=== PATIENT | female | born 1985 | race Caucasian/White ===

== ENCOUNTER 2025-08-07 16:12 | Emergency (ER) | payer OTHER, SELFPAY ==
[2025-08-07] VITALS (9 sets, daily range): BP systolic 109–133; BP diastolic 64–82; PULSE 65–83; RESP 18; TEMP 37; O2SAT 99–100; BMI 17.8
--- NOTE | 2025-08-07 17:23 | ED.HA ---
HPI - Headache General Chief Complaint: Headache Stated Complaint: headache, nausea x 2 days vison change Time Seen by Provider: 08/07/25 17:23 Source: patient, RN notes reviewed and old records reviewed Mode of arrival: Ambulatory Limitations: no limitations History of Present Illness HPI Narrative: 40-year-old female history of migraines presents with complaint of headache the left temporal region. Patient notes little bit of blurred vision of the left eye as well. She states no fevers. States she has had migraines in the past they are sometimes over the area of the temporal but this has been much stronger and more persistent. She states she is not sure if the eyeball itself really hurts but the pain does radiate around the orbit region. She has not noticed any redness or swelling. She states vision is slightly blurred but states she can see normally otherwise. She notes she had what felt like a typical migraine Friday night that had mostly improved and then overnight had a significant bump or increase of pain that has been persistent. She notes movement seems to make it worse. She denies any fevers or chills. No cough cold or congestion symptoms. She has had some nausea but no vomiting. She denies any other GI or urinary symptoms. No numbness tingling or weakness no difficulty with gait or movement. States no daily medications. Denies any major surgeries. No known drug allergies. No tobacco, occasional alcohol, no recreational drugs. Patient does wear glasses states she is nearsighted. No contacts. Related Data Allergies Allergy/AdvReac Type Severity Reaction Status Date / Time No Known Drug Allergies Allergy Verified 08/07/25 16:26 Review of Systems Review of Systems ROS Unobtainable: All systems reviewed & are unremarkable except as noted in HPI and below Patient History Social History Smoking Status: Never smoker Smoking Status: Never smoker Exam Narrative Exam Narrative: GEN: well nourished, well appearing female, alert and oriented x 3, patient appears to be in mild distress. HEENT: Atraumatic, pupils are equal round reactive to light, extraocular movements are intact, no photophobia, no warmth, erythema or other skin changes, no nystagmus nares are clear, TMs are clear with no fluid, there is no conjunctival pallor. Throat is clear without any exudates, erythema, tonsillar enlargement or uvular deviation, no meningeal signs. Visual acuity: right [20/20], left [20/20] without correction. IOP: Right 22 mm Hg, Left 19 mm Hg General: no globe trauma Eyelids: normal inspection, eyelids everted for exam on left. Conjunctiva/Sclera: normal inspection Corneas: normal inspection, examined with fluroscein on left with no uptake. EOM: intact, no palsy/entrapment Pupils: PERRL, normal accomadation, pupil normal Anterior Chambers: normal inspection, no hypema Posterior: normal fundoscopic on bilaterally HEART: Regular rate and rhythm without murmur, clicks, rubs. LUNGS:Lungs clear to auscultation, no wheezes, rales, crackles, chest moves symmetrically ABD:bowel sounds normal, soft, non-tender, no guarding, rebound, rigidity, no masses noted, no hepatosplenomegaly MSCL: Non-tender, no muscle atrophy, muscles strength 5/5 upper and lower extremities, full range of motion, normal gait NEURO:CN 2-12 intact, sensation normal Initial Vital Signs Initial Vital Signs: Vital Signs Pulse Rate 78 08/07/25 16:20 Pulse Oximetry 100 08/07/25 16:20 Course Orders Ordered: Discontinued Medications Fluorescein Sodium (Fluorescein 1 Mg Strip) 1 mg EYE-BOTH NOW ONE Stop: 08/07/25 17:32 Last Admin: 08/07/25 17:40 Dose: 1 mg Documented By: Ketorolac Tromethamine (Ketorolac 30 Mg/Ml Vial) 15 mg IV NOW ONE Stop: 08/07/25 17:49 Last Admin: 08/07/25 18:00 Dose: 15 mg Documented By: Proparacaine HCl (Proparacaine 0.5% Ophth Yvonne) 1 drops EYE-BOTH NOW ONE Stop: 08/07/25 17:32 Last Admin: 08/07/25 17:41 Dose: 1 drop Documented By: Vital Signs Vital signs: Vital Signs - 8 hr 08/07/25 16:20 08/07/25 16:24 08/07/25 16:24 Temperature Pulse Rate 78 78 Respiratory Rate Blood Pressure 116/64 Pulse Oximetry 100 100 Oxygen Delivery Method 08/07/25 16:25 08/07/25 16:30 08/07/25 16:30 Temperature 98.6 F Pulse Rate 80 73 Respiratory Rate 18 Blood Pressure 116/64 109/69 Pulse Oximetry 100 100 Oxygen Delivery Method Room Air 08/07/25 17:00 08/07/25 17:00 08/07/25 17:30 Temperature Pulse Rate 74 Respiratory Rate Blood Pressure 113/79 133/79 Pulse Oximetry 100 Oxygen Delivery Method 08/07/25 17:30 Temperature Pulse Rate 83 Respiratory Rate Blood Pressure Pulse Oximetry 100 Oxygen Delivery Method MDM - Headache Lab Data 08/07/25 16:50 08/07/25 16:50 Labs: Lab Results 08/07/25 Range/Units 16:50 WBC 4.4 L (4.5-11.0) X10^3/uL RBC 5.29 H (4.0-5.2) X10^6/uL Hgb 14.6 (12.0-16.0) g/dL Hct 43.1 (36-46) % MCV 81.5 (80-100) fL MCH 27.6 (26-34) PG MCHC 33.9 (30-36) % RDW 13.8 (11.6-14.8) % Plt Count 251 (150-400) X10^3/uL Neut % (Auto) 62.6 (50-75) % Lymph % (Auto) 28.0 (25-40) % Lyman % (Auto) 7.3 (3-14) % Eos % (Auto) 1.5 L (2-4) % Baso % (Auto) 0.6 (0-2) % Neut # (Auto) 2800 (0227-4943) /uL Lymph # (Auto) 1200 (6296-0007) /uL Lyman # (Auto) 300 (0-900) /uL Eos # (Auto) 100 (0-450) /uL Baso # (Auto) 0 (0-100) /uL ESR 1 (0-20) MM/HR Sodium 138 (137-145) mmol/L Potassium 4.2 (3.4-5.1) mmol/L Chloride 104 (98-107) mmol/L Carbon Dioxide 24 (22-32) mmol/L BUN 12 (7-17) mg/dL Creatinine 0.74 (0.52-1.04) mg/dL Estimated GFR > 60 (>60) mL/min BUN/Creatinine Ratio 16.2 (6-22) Glucose 100 H (70-99) mg/dL Calcium 9.6 (8.4-10.2) mg/dL Total Bilirubin 0.3 (0.2-1.3) mg/dL AST 25 (14-36) IU/L ALT 20 (<35) IU/L Alkaline Phosphatase 61 (38-126) U/L C-Reactive Protein < 0.5 (<1.0) mg/dL Total Protein 8.0 (6.3-8.2) g/dL Albumin 4.9 (3.5-5.0) g/dL Globulin 3.1 (1.7-4.1) g/dL Albumin/Globulin Ratio 1.6 (1.0-2.8) MDM Narrative Medical decision making narrative: Labs show white count of 4.4 hemoglobin of 14.6 platelets are 251, chemistries are overall appropriate, BUN and creatinine are normal LFTs are negative, ESR and CRP are both negative. CT head and neck angio shows no significant intracranial arterial abnormality of the head, arteries of the neck no findings of dissection. Non-con head CT shows no acute intracranial hemorrhage or mass effect. Patient had Toradol. 40-year-old female with a history of migraines but notes this is different and feels stronger than typical although the location somewhat similar but radiates more towards her eye little bit more atypical. Eye exam does not show any major changes eye pressures are 19 in the affected side in 22 on the unaffected side but otherwise her exam is normal. She does note a little bit of photophobia with this after lights are turned down for her exam. Her labs, imaging showed no acute change my suspicion for subarachnoid hemorrhage is low, patient is low risk for temporal arteritis but ESR and CRP are both negative making this unlikely as well. Patient feels much improved after Toradol. She is nontoxic, well-appearing felt appropriate for discharge home discussed differential need for follow up, repeat evaluation of the eye or she develops any new skin changes such as blisters or shingles or if she is having any other new concerning changes. Discharge Plan Departure Patient Disposition: Home Clinical Impression: Headache Instructions: DI for Headache Activity Restrictions/Additional Instructions: Follow up for recheck if your symptoms are persistent. Watch for any skin changes or rashes particularly small blisters on your forehead or new your eye if these develop you need re-evaluation. Please return if you develop fevers, sudden vision changes, any new weakness numbness or difficulty with speech, rapidly worsening headaches, persistent vomiting, lightheadedness or passing out or other new or concerning changes. Stand Alone Forms: Patient Portal/API
[2025-08-07] MEDS: FLUORESCEIN 1 MG STRIP EYE-BOTH (17:40)
[2025-08-07] MEDS: PROPARACAINE 0.5% OPHTH SOL 1 DROPS EYE-BOTH (17:41)
--- NOTE | 2025-08-07 17:47 | DI.CT.S_ITS ---
PROCEDURE: CT HEAD/BRAIN WO CON INDICATIONS: left temporal ott, hx migraines worst, pain radiates to eye TECHNIQUE: Noncontrast 4.5 mm thick angled axial sections acquired from the foramen magnum to the vertex, with coronal and sagittal reformats. For radiation dose reduction, the following was used: automated exposure control, adjustment of mA and/or kV according to patient size. COMPARISON: [facility], CT, CT ANGIO HEAD AND NECK, 08/07/2025, 17:56. FINDINGS: Image quality: Diagnostic. CSF spaces: Basal cisterns are patent. No extra-axial fluid collections. Ventricles are normal in size and shape. Brain: No midline shift. No intracranial mass effect or hemorrhage. Pillai- white matter interface is normal. Skull and face: Calvarium and visualized facial bones are intact, without suspicious lesions. Sinuses: Visualized sinuses and mastoids are clear. IMPRESSION: No imaging explanation is found for this patient's presenting symptoms. To the limits of this noncontrast study, no findings of intracranial masses or mass effect can be seen. No acute intracranial hemorrhage is seen. Dictated by: Oliverio Mora M.D. on 08/07/2025 at 17:33 Approved by: Oliverio Mora M.D. on 08/07/2025 at 17:33
--- NOTE | 2025-08-07 17:47 | DI.CT.S_ITS ---
PROCEDURE: CT ANGIO HEAD AND NECK INDICATIONS: left temporal ott, hx migraines worst, pain radiates to eye TECHNIQUE: After the administration of intravenous contrast, 1 mm thick sections acquired from the aortic arch through the [place] of [place]. 3-dimensional fkvxlpo-rwhyoekhb-keyqqlkorr (MIP) and/or volume rendering reformats were acquired of the central intracranial vasculature and neck separately. For radiation dose reduction, the following was used: automated exposure control, adjustment of mA and/or kV according to patient size. COMPARISON: [facility], CT, CT HEAD/BRAIN WO [facility], 08/07/2025, 17:56. FINDINGS: Image quality: Limited by bolus timing, with venous contamination. There is streak artifact seen through the level of the shoulders. Cerebral CT Angiogram: Internal carotid arteries: No acute findings. Intracranial ICA are patent with no significant stenosis. No occlusion. No aneurysm. Anterior cerebral arteries: Unremarkable. No significant stenosis. No occlusion. No aneurysm. Middle cerebral arteries: Unremarkable. No significant stenosis. No occlusion. No aneurysm. Posterior cerebral arteries: Unremarkable. No significant stenosis. No occlusion. No aneurysm. Basilar artery: Unremarkable. No significant stenosis. No occlusion. No aneurysm. Vertebral arteries: Unremarkable as visualized. Dural venous sinuses: Unremarkable given phase of enhancement. Other: Arterial phase appearance of the brain parenchyma is unremarkable. Neck CT Angiogram: Internal carotid arteries: Unremarkable. No significant stenosis. No dissection or occlusion. Common carotid arteries: Unremarkable. No significant stenosis. No dissection or occlusion. External carotid arteries: Unremarkable. No occlusion. Vertebral arteries: Unremarkable. No significant stenosis. No dissection or occlusion. Aortic Arch and Mediastinum: Partially visualized aortic arch unremarkable without evidence of aneurysm. Origins of the great vessels unremarkable. Other: Arterial phase soft tissues of the neck and chest are unremarkable. IMPRESSION: No significant intracranial arterial abnormality is seen. No significant abnormality is seen within the arteries of the neck. No findings of dissection are seen. Any quantitative measurements of stenosis were performed using NASCET criteria. Dictated by: Oliverio Mora M.D. on 08/07/2025 at 17:33 Approved by: Oliverio Mora M.D. on 08/07/2025 at 17:35
[2025-08-07 17:54] LABS: Add Manual Diff / Slide Review NO; Hematocrit 43.1 % (36-46); Hemoglobin 14.6 g/dL (12.0-16.0); Lymphocytes Absolute Auto 1200 /uL (1100-4500); Mean Corpuscular HGB Conc 33.9 % (30-36); Mean Corpuscular Hemoglobin 27.6 PG (26-34); Mean Corpuscular Volume 81.5 fL (80-100); Platelet Count 251 X10^3/uL (150-400)
[2025-08-07 18:00] LABS: Alanine Aminotransferase 20 IU/L (<35); Albumin 4.9 g/dL (3.5-5.0); Albumin Globulin Ratio 1.6 (1.0-2.8); Alkaline Phosphatase 61 U/L (38-126); Blood Urea Nitrogen 12 mg/dL (7-17); Calcium 9.6 mg/dL (8.4-10.2); Carbon Dioxide 24 mmol/L (22-32); Chloride 104 mmol/L (98-107); Estimated Glomerular Filt Rate > 60 mL/min (>60); Globulin 3.1 g/dL (1.7-4.1); Glucose 100 mg/dL (70-99); HEMOLYSIS < 15 (0-50); Potassium 4.2 mmol/L (3.4-5.1); Sodium 138 mmol/L (137-145); Total Protein 8.0 g/dL (6.3-8.2)
[2025-08-07] MEDS: KETOROLAC 30 MG/ML VIAL 15 MG IV (18:00)
== END 2025-08-07 18:52 | disposition home or self-care (01) ==
PROVIDERS: Emergency Provider Emergency Medicine
DX: R51.9 Headache, unspecified (principal); H53.8 Other visual disturbances
CPT/HCPCS: 36415; 70450; 70496; 70498; 80053; 85025; 85651; 86140; 96374; 99284; J1885; Q9967